=== PATIENT | female | born 1970 | race Caucasian/White ===

== ENCOUNTER 2017-10-03 17:31 | Emergency (ER) | payer OTHER ==
[~2017-10-03] VITALS: Ht 152.4 cm; Wt 68.0 kg
[~2017-10-03 17:31] MED LIST: ACETAMINOPHEN-1 EAC1 PO; ALBUTEROL INHAL17 GM IH; AMITRIPTYLINE H25 M2; APAP500 PO; AZITHROMYCIN 2250 MG; AZITHROMYCIN 2250 MG PO; BACTRIM DS TAB1 EACH PO; CELEXA40 MG PO; CIPROFLOXACIN500 M1 PO; CLEOCIN HCL300 MG PO; CYMBALTA60 MG; CYMBALTA60 MG PO; DILAUDID2 M1 PO; FIORICET 50-321 EACH PO; FLEXERIL PO; HYDROCODON-ACE1 EAC7 PO; HYDROCODONE-APA10 ML; IBUPROFEN 600600 M1 PO; IBUPROFEN 800800 M1 PO; IMITREX6 MG/0.5 M SQ; MELATONIN3 MG; MOBIC7.5 MG PO; MULTIVITAMINS; NEURONTIN 300300 M1 PO; NEXIUM40 MG; NEXIUM40 MG PO; NORCO 5-325 TA1 EACH PO; NORFLEX100 MG PO; PEPCID40 MG PO; PERCOCET 5-3251 EACH PO; PHENERGAN 25 MG25 MG PO; PROAIR HFA8.5 GM; PROAIR HFA8.5 GM IH; REGLAN 10 MG TA10 M1 PO; TYLENOL EX-STR500 M2 PO; VALIUM5 MG PO; XANAX 0.5 MG0.5 M1 PO; ZANTAC 150MG T150 M1; ZANTAC 150MG T150 M1 PO; ZOFRAN 4 MG ORAL4 M1 DIS; ZOFRAN ODT4 MG PO; ZOFRAN4 MG PO
[2017-10-03] MEDS ORDERED: HYDROCHLOROTHIA25 M2 PO (17:50)
[2017-10-03] MEDS ORDERED: LOPRESSOR50 PO (17:50)
[2017-10-03 18:01] LABS: URINE BILIRUBIN NEGATIVE (Negative); URINE BLOOD TRACE (Negative); URINE CLARITY CLEAR; URINE COLOR YELLOW; URINE GLUCOSE-RANDOM* NEGATIVE (Negative); URINE KETONES NEGATIVE (Negative); URINE LEUKOCYTES NEGATIVE (Negative); URINE NITRITE NEGATIVE (Negative); URINE PROTEIN (DIPSTICK) NEGATIVE (Negative); URINE UROBILINOGEN 0.2 E.U./dl (0.2-1.0)
[2017-10-03 18:35] LABS: ABSOLUTE NEUTROPHILS 5.1 thou/uL (1.4-8.2); BASOPHILS 1.3 % (0.0-2.0); EOSINOPHILS 1.4 % (0.0-3.0); HEMATOCRIT 41.5 % (37.0-47.0); HEMOGLOBIN 14.2 gm/dL (12.0-15.0); LYMPHOCYTES 38.6 % (24.0-44.0); MCH 31.8 pg (26.0-34.0); MCHC 34.3 g/dL (28.0-37.0); MCV 92.9 fL (80.0-100.0); MONOCYTES 5.5 % (1.0-8.0); PLATELET COUNT 293 thou/uL (150-400); POLYS 53.2 % (36.0-66.0); RBC 4.47 mil/uL (4.20-5.00); RDW 12.9 % (10.5-14.5); WBC 9.5 thou/uL (4.0-11.0)
[2017-10-03 18:38] LABS: CALCIUM 9.7 mg/dL (8.5-10.1); CREATININE 0.9 mg/dL (0.6-1.0); POTASSIUM 3.6 mmol/L (3.5-5.1)
[2017-10-03 18:43] LABS: TOTAL BILIRUBIN 0.1 mg/dL (<0.1-1.0); TOTAL PROTEIN 7.8 g/dL (6.4-8.2)
[2017-10-03] MEDS ORDERED: LEVSIN0.125 MG PO (19:22)
[2017-10-03] MEDS ORDERED: MIRALAX17 GM PO (19:22)
== END 2017-10-03 19:30 | disposition home or self-care (01) ==
LOC: ER 17:31
PROVIDERS: Physician Assistant
DX: K59.00 Constipation, unspecified (principal); R10.30 Lower abdominal pain, unspecified; F17.210 Nicotine dependence, cigarettes, uncomplicated; Z88.0 Allergy status to penicillin; Z88.8 Allergy status to other drugs, medicaments and biological substances

== ENCOUNTER 2018-01-25 04:43 | Emergency (ER) | payer OTHER ==
[~2018-01-25] VITALS: Ht 152.4 cm; Wt 72.6 kg
[~2018-01-25 04:43] MED LIST changes: +HYDROCHLOROTHIA25 M2 PO; +LEVSIN0.125 MG PO; +LOPRESSOR50 PO; +MIRALAX17 GM PO
[2018-01-25] MEDS ORDERED: LISINOPRIL10 MG PO (05:15)
[2018-01-25] MEDS ORDERED: LIORESAL 10 MG10 MG PO (05:15)
[2018-01-25] MEDS ORDERED: ATIVAN0.5 MG PO (05:18)
[2018-01-25 05:59] VITALS: BP 136/83
== END 2018-01-25 05:59 | disposition home or self-care (01) ==
LOC: ER 04:43
DX: G43.909 Migraine, unspecified, not intractable, without status migrainosus (principal); M54.9 Dorsalgia, unspecified; G89.29 Other chronic pain; F17.210 Nicotine dependence, cigarettes, uncomplicated; Z72.89 Other problems related to lifestyle; Z88.0 Allergy status to penicillin; Z88.6 Allergy status to analgesic agent; Z88.8 Allergy status to other drugs, medicaments and biological substances